=== PATIENT | male | born 1955 | race African-American/Black ===

== ENCOUNTER 2022-12-15 13:59 | Inpatient (IN) | payer MEDICARE, MEDICAID ==
[~2022-12-15] VITALS: Ht 175.3 cm; Wt 82.6 kg
[2022-12-15] MEDS ORDERED: MORPHINE SULFATE 4 MG/ML CPJ (NOT FOR IM USE) IV STA (14:51)
[2022-12-15] MEDS ORDERED: ONDANSETRON HCL 4MG/2ML INJ IV STA (14:51)
[2022-12-15] MEDS ORDERED: SODIUM CHLORIDE 0.9% 1,000 ML IV ONE (15:00)
[2022-12-15 15:26] LABS: BASOPHILS % 1.5 % (0.0-2.0); HEMATOCRIT. 40.7 % (42.0-52.0); MEAN CORPUSCULAR HEMOGLOBIN 28.9 pg (28.0-32.0); MEAN PLATELET VOLUME 7.3 fl (7.4-10.4); MONOCYTES % 2.7 % (2.0-8.0); NEUTROPHILS % 84.8 % (40.0-76.0); PLATELET 322 x1000/uL (130-400); RED BLOOD CELL COUNT 4.84 mill/uL (4.7-6.1); RED CELL DISTRIBUTION WIDTH 14.7 % (11.6-14.6)
[2022-12-15 15:52] LABS: CHLORIDE 93 mEq/L (98-107)
[2022-12-15 16:11] LABS: PARTIAL THROMBOPLASTIN TIME 28.8 sec (23.4-31.0); PROTHROMBIN TIME 10.8 sec (9.6-11.0)
[2022-12-15 17:30] LABS: CLARITY URINE CLEAR (CLEAR); COLOR URINE YELLOW (YELLOW); KETONES URINE 1+ (NEGATIVE); LEUKOCYTE ESTERASE URINE NEGATIVE (NEGATIVE); NITRITE URINE NEGATIVE (NEGATIVE); OCCULT BLOOD URINE NEGATIVE (NEGATIVE); PH URINE >=9.0 (4.5-8.0); PROTEIN URINE 1+ (NEGATIVE)
[2022-12-15] MEDS ORDERED: DIPHENHYDRAMINE 50MG/ML VIAL IV PRN (20:45)
[2022-12-15] MEDS: MORPHINE SULFATE 4 MG/ML CPJ (NOT FOR IM USE) IV PRN (21:24)
[2022-12-15] MEDS ORDERED: NALOXONE HCL 0.4MG/ML VIAL IV PRN (21:30)
[2022-12-15] MEDS ORDERED: POTASSIUM CHLORIDE INJ 10 MEQ in DEXT 5%/0.9% NACL 1,000 ML IV SCH (22:00)
[2022-12-15] MEDS: ONDANSETRON HCL 4MG/2ML INJ IV PRN (22:44)
[2022-12-15] MEDS: KETOROLAC 30MG/ML VIAL IV PRN (22:49)
[2022-12-16] VITALS: BP 130/52
[2022-12-16 08:00] VITALS: BP 118/61
[2022-12-16 08:26] LABS: CHLORIDE 100 mEq/L (98-107)
[2022-12-16] MEDS: PANTOPRAZOLE SODIUM 40 MG/VIAL IV SCH (08:37)
[2022-12-16 08:38] LABS: PHOSPHORUS 4.5 mg/dL (2.5-4.9)
[2022-12-16] MEDS ORDERED: POTASSIUM CHLORIDE 20MEQ TABLET SR PO NR (09:45)
[2022-12-16 12:00] VITALS: BP 133/65
[2022-12-16] MEDS ORDERED: POTASSIUM CHLORIDE INJ 40 MEQ in DEXT 5% WATER 500 ML IV ONE (12:00)
[2022-12-16] MEDS: KETOROLAC 30MG/ML VIAL IV PRN ×2 (14:47→23:41)
[2022-12-16 16:00] VITALS: BP 116/62
[2022-12-16] MEDS: MORPHINE SULFATE 4 MG/ML CPJ (NOT FOR IM USE) IV PRN (18:48)
[2022-12-16] MEDS: ONDANSETRON HCL 4MG/2ML INJ IV PRN (19:20)
[2022-12-16 20:00] VITALS: BP 138/64
[2022-12-16] MEDS: POTASSIUM CHLORIDE INJ 10 MEQ in DEXT 5%/0.9% NACL 1,000 ML IV SCH (20:56)
[2022-12-16] MEDS ORDERED: PNEUMOCOCCAL 23-VAL P-SAC VAC 0.5 ML IM ONE (21:00)
[2022-12-16] MEDS ORDERED: INFLUENZA VACCINE 05/PF 0.5 ML SYRINGE IM ONE (21:00)
[2022-12-17] VITALS: BP 121/54
[2022-12-17 04:00] VITALS: BP 142/64
[2022-12-17] MEDS: ONDANSETRON HCL 4MG/2ML INJ IV PRN ×2 (04:29→12:47)
[2022-12-17] MEDS: MORPHINE SULFATE 4 MG/ML CPJ (NOT FOR IM USE) IV PRN ×3 (04:33→21:28)
[2022-12-17] MEDS: POTASSIUM CHLORIDE INJ 10 MEQ in DEXT 5%/0.9% NACL 1,000 ML IV SCH ×2 (05:17→15:47)
[2022-12-17 06:49] LABS: BASOPHILS % 0.8 % (0.0-2.0); EOSINOPHILS % 4.8 % (0.0-5.0); HEMATOCRIT. 35.5 % (42.0-52.0); HEMOGLOBIN. 12.1 g/dL (14.0-18.0); LYMPHOCYTES % 46.7 % (20.0-50.0); MEAN CORPUSCULAR HEMOGLOBIN 29.1 pg (28.0-32.0); MEAN CORPUSCULAR VOLUME 85.4 fL (80.0-94.0); MEAN PLATELET VOLUME 7.2 fl (7.4-10.4); MONOCYTES % 9.5 % (2.0-8.0); NEUTROPHILS % 38.2 % (40.0-76.0); PLATELET 262 x1000/uL (130-400); RED BLOOD CELL COUNT 4.16 mill/uL (4.7-6.1); RED CELL DISTRIBUTION WIDTH 14.6 % (11.6-14.6)
[2022-12-17 07:07] LABS: CHLORIDE 106 mEq/L (98-107)
[2022-12-17 08:00] VITALS: BP 165/69
[2022-12-17] MEDS: PANTOPRAZOLE SODIUM 40 MG/VIAL IV SCH (09:06)
[2022-12-17 12:00] VITALS: BP 134/61
[2022-12-17 16:00] VITALS: BP 165/72
[2022-12-17] MEDS: CLONIDINE 0.1MG TABLET PO PRN (16:20)
[2022-12-17] MEDS: KETOROLAC 30MG/ML VIAL IV PRN (18:35)
[2022-12-17 20:00] VITALS: BP 128/56
[2022-12-18] MEDS: ONDANSETRON HCL 4MG/2ML INJ IV PRN ×2 (03:51→22:30)
[2022-12-18] MEDS: POTASSIUM CHLORIDE INJ 10 MEQ in DEXT 5%/0.9% NACL 1,000 ML IV SCH ×3 (03:51→22:46)
[2022-12-18] MEDS: MORPHINE SULFATE 4 MG/ML CPJ (NOT FOR IM USE) IV PRN ×2 (03:52→22:22)
[2022-12-18 04:00] VITALS: BP 149/65
[2022-12-18 08:00] VITALS: BP 146/52
[2022-12-18] MEDS: PANTOPRAZOLE SODIUM 40 MG/VIAL IV SCH (09:08)
[2022-12-18 12:00] VITALS: BP 144/62
[2022-12-18 16:00] VITALS: BP 151/62
[2022-12-18 20:00] VITALS: BP 162/62
[2022-12-18] MEDS: CLONIDINE 0.1MG TABLET PO PRN (22:31)
[2022-12-19 04:00] VITALS: BP 145/63
[2022-12-19] MEDS: ONDANSETRON HCL 4MG/2ML INJ IV PRN (05:22)
[2022-12-19] MEDS: MORPHINE SULFATE 4 MG/ML CPJ (NOT FOR IM USE) IV PRN (05:24)
[2022-12-19 08:00] VITALS: BP 180/69
[2022-12-19] MEDS: PANTOPRAZOLE SODIUM 40 MG/VIAL IV SCH (09:00)
[2022-12-19 12:00] VITALS: BP 168/70
[2022-12-19] MEDS: LOSARTAN POTASSIUM 100 MG TABLET PO SCH (12:36)
[2022-12-19 16:00] VITALS: BP 159/53
[2022-12-19 20:00] VITALS: BP 155/61
[2022-12-19] MEDS: MINOXIDIL 2.5MG TABLET PO SCH (21:00)
[2022-12-20] VITALS: BP 167/61
[2022-12-20 04:00] VITALS: BP 159/65
[2022-12-20 08:00] VITALS: BP 133/57
[2022-12-20] MEDS: LOSARTAN POTASSIUM 100 MG TABLET PO SCH (09:40)
[2022-12-20] MEDS: MINOXIDIL 2.5MG TABLET PO SCH ×2 (09:41→21:14)
[2022-12-20] MEDS: PANTOPRAZOLE SODIUM 40 MG/VIAL IV SCH (09:55)
[2022-12-20 12:00] VITALS: BP 165/64
[2022-12-20] MEDS ORDERED: IOHEXOL-350 100 ML BOTTLE ONE (13:41)
[2022-12-20 16:00] VITALS: BP 137/66
[2022-12-20 20:00] VITALS: BP 152/63
[2022-12-21] VITALS: BP 157/72
[2022-12-21 04:00] VITALS: BP 132/66
[2022-12-21 08:00] VITALS: BP 133/63
[2022-12-21 09:22] VITALS: BP 133/63
[2022-12-21] MEDS: LOSARTAN POTASSIUM 100 MG TABLET PO SCH (09:55)
[2022-12-21] MEDS: PANTOPRAZOLE SODIUM 40 MG/VIAL IV SCH (09:55)
[2022-12-21] MEDS: MINOXIDIL 2.5MG TABLET PO SCH (09:55)
== END 2022-12-21 12:45 | disposition home or self-care (01) | DRG 389 ==
LOC: ER 14:29 → EDBEDREQ 17:49 → EDBEDREQTM 17:49 → ENRESERV 21:10 → 6EST 22:19
PROVIDERS: ADMIT Internal Medicine; ATTEND Internal Medicine
DX: K56.600 Partial intestinal obstruction, unspecified as to cause (principal); E87.1 Hypo-osmolality and hyponatremia; I10 Essential (primary) hypertension; E87.6 Hypokalemia; Z20.822 Contact with and (suspected) exposure to COVID-19; Z85.528 Personal history of other malignant neoplasm of kidney; Z80.0 Family history of malignant neoplasm of digestive organs; Z90.5 Acquired absence of kidney; Z88.2 Allergy status to sulfonamides
CPT/HCPCS: 36415; 71045; 74018; 74176; 80048; 80053; 81003; 83735; 84100; 85025; 86850; 86900; 87426; 90686; 90732; 93005; 99285; C9113; C9803; J1885; J2270; J2405; J3480; J7042; J7060; Q9967